=== PATIENT | female | born 1990 | race Caucasian/White ===

== ENCOUNTER 2018-11-29 16:14 | Emergency (ER) | payer MEDICAID ==
[~2018-11-29] VITALS: Ht 167.6 cm; Wt 72.6 kg
[2018-11-29 16:25] VITALS: BP 123/89
--- NOTE | 2018-11-29 16:30 | NUR ---
PT TRIAGED AND AMBULATED TO [facility] '
--- NOTE | 2018-11-29 17:08 | NUR ---
BIB SELF. AAO X4. FULL CLEAR SPEECH. PT C/O ALLERGIC REACTION S/P EATING PIZZA AT WORK LAST NIGHT, L EYE SWELLING AND RASH NOTED TO BILAT ELBOWS AND BACK OF NECK. DENIES SOB/THROAT CLOSURE. DENIES PAIN. TOOK [place] AT 2200 LAST NIGHT TO HELP ITCHING. PERRLA, BRISK 3 MM. HOB UP. BED SIDE RAILS UP X1. ON LOW BED POSITION LOCKED. ER MADE AWARE OF PT STATUS.
--- NOTE | 2018-11-29 17:08 | NUR ---
PATIENT AMBULATED TO BED 3 AT THIS TIME.
--- NOTE | 2018-11-29 17:45 | NUR ---
DR ZEPEDA AT BEDSIDE FOR PT EVALUATION
[2018-11-29] MEDS ORDERED: predniSONE 20 MG TAB PO ONE (17:50)
[2018-11-29 18:19] VITALS: BP 122/84
--- NOTE | 2018-11-29 18:19 | NUR ---
Patient discharged with v/s stable. Written and verbal after care instructions given and explained. Patient alert, oriented and verbalized understanding of instructions. Ambulatory with steady gait. All questions addressed prior to discharge. ID band removed. Patient advised to follow up with PMD. Rx of prednisone, benadryl given. Patient educated on indication of medication including possible reaction and side effects. Opportunity to ask questions provided and answered.
== END 2018-11-29 18:19 | disposition home or self-care (01) ==
LOC: MED 16:14
DX: L50.0 Allergic urticaria (principal)
CPT/HCPCS: 99283; J7512; Q0163

== ENCOUNTER 2018-12-08 14:36 | Emergency (ER) | payer MEDICAID ==
[~2018-12-08] VITALS: Ht 167.6 cm; Wt 73.9 kg
[2018-12-08 14:44] VITALS: BP 133/69
--- NOTE | 2018-12-08 14:52 | NUR ---
BIB SELF C/O BILATERAL EAR PRESSURE PAIN 8/10 AND DIZZINESS X 2 DAYS. NO N/V/D. SKIN WARM, PINK, DRY. BREATHING EVEN AND UNLABORED.
--- NOTE | 2018-12-08 15:17 | NUR ---
REPORT TO CHIDI LUGO
[2018-12-08 15:25] VITALS: BP 127/76
--- NOTE | 2018-12-08 15:25 | NUR ---
Patient discharged with v/s stable. Written and verbal after care instructions given and explained. Patient alert, oriented and verbalized understanding of instructions. Ambulatory with steady gait. All questions addressed prior to discharge. ID band removed. Patient advised to follow up with PMD. Rx of AZITHROMYCIN, SUDAFED given. Patient educated on indication of medication including possible reaction and side effects. Opportunity to ask questions provided and answered.
== END 2018-12-08 15:25 | disposition home or self-care (01) ==
LOC: MED 14:36
DX: H66.93 Otitis media, unspecified, bilateral (principal); Z88.0 Allergy status to penicillin; Z79.899 Other long term (current) drug therapy
CPT/HCPCS: 81002; 81025; 99283

== ENCOUNTER 2023-06-02 17:10 | Emergency (ER) | payer MEDICAID ==
[~2023-06-02] VITALS: Ht 167.6 cm; Wt 78.0 kg
[2023-06-02 17:37] VITALS: BP 100/64; PULSE 98; RESP 20; TEMP 98.8; O2SAT 100
[2023-06-02 18:30] LABS: APPEARANCE,URINE CLEAR (CLEAR); BILIRUBIN,URINE NEGATIVE (NEGATIVE); BLOOD, URINE 3+ (NEGATIVE); COLOR,URINE YELLOW (YELLOW); LEUKOCYTE ESTERASE ,URINE TRACE (NEGATIVE); NITRITE, URINE NEGATIVE (NEGATIVE); PH,URINE 6.5 (5.0-9.0); PROTEIN,URINE TRACE (NEGATIVE); UGLUCOSE NEGATIVE (NEGATIVE)
[2023-06-02] MEDS ORDERED: NACL 0.9% 1,000 ML IV ONE (18:35)
[2023-06-02 18:40] LABS: BACTERIA,URINE 10-30 (MOD) /HPF (None Seen); SQUAMOUS EPITHELIAL CELL,UR 4-10 (MOD) /LPF (0-3 (FEW))
[2023-06-02] MEDS ORDERED: ONDA-188 PO (19:19)
[2023-06-02] MEDS ORDERED: CEPH-588 PO (19:19)
[2023-06-02] MEDS ORDERED: IBUP-2213 PO (19:19)
[2023-06-02] MEDS ORDERED: ONDANSETRON 4 MG/2 ML VIAL IVP ONE (19:20)
[2023-06-02 19:29] LABS: FLU A ANTIGEN negative (NEGATIVE); FLU B ANTIGEN NEGATIVE (NEGATIVE)
[2023-06-02] MEDS ORDERED: KETOROLAC 30 MG/ML VIAL IVP ONE (19:30)
[2023-06-02 20:30] VITALS: BP 101/64; PULSE 88; RESP 20; TEMP 98.1; O2SAT 100
== END 2023-06-02 20:30 | disposition home or self-care (01) ==
LOC: MED 17:10
DX: B34.9 Viral infection, unspecified (principal); Z20.822 Contact with and (suspected) exposure to COVID-19; N39.0 Urinary tract infection, site not specified; Z79.899 Other long term (current) drug therapy; Z88.0 Allergy status to penicillin
CPT/HCPCS: 36415; 74018; 81001; 81025; 83735; 87086; 87426; 87804; 96361; 96374; 96375; 99284; J1885; J2405; J7030